=== PATIENT | female | born 2005 | race Caucasian/White ===

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

== ENCOUNTER 2024-01-22 18:30 | Emergency (ER) | payer BC, MEDICAID ==
[~2024-01-22] VITALS: Ht 162.5 cm; Wt 111.1 kg
[~2024-01-22 18:30] MED LIST changes: +ONDANSETRON4 MG SL
[2024-01-22 19:08] LABS: BASO # 0.1 10*3/uL (0.0-0.1); BASO % 0.4 % (0.0-1.0); EOS # 0.1 10*3/uL (0.0-0.4); EOS % 0.8 % (1.0-4.0); LYMPH # 3.1 10*3/uL (1.3-4.4); LYMPH % 24.3 % (27.0-41.0); MEAN CELL VOLUME 84.5 fl (81.0-99.0); MEAN CORPUSCULAR HGB 28.8 pg (27.0-31.0); MEAN CORPUSCULAR HGB CONC 34.1 g/dl (33.0-37.0); MEAN PLATELET VOLUME 9.4 fl (9.6-12.3); MONO # 0.5 10*3/uL (0.1-1.0); MONO % 3.8 % (3.0-9.0); NEUT # 8.9 10*3/uL (2.3-7.9); NEUT % 70.5 % (47.0-73.0); PLATELET COUNT AUTOMATED 276 10*3/uL (130-400); RED BLOOD COUNT 4.38 10*6/uL (4.10-5.10); RED CELL DISTRI WIDTH 12.8 % (0-14.5); WHITE BLOOD COUNT 12.6 10*3/uL (4.8-10.8)
[2024-01-22 19:30] LABS: BILIRUBIN Negative (Negative); BLOOD Negative (Negative); CLARITY Cloudy (Clear); COLOR Dark Yellow (Yellow); GLUCOSE Negative (Negative); KETONE Negative (Negative); LEUKO ESTERASE Negative (Negative); NITRITE Negative (Negative); PH 5.5 (4.5-8.0); SPECIFIC GRAVITY >= 1.030 (1.001-1.030)
[2024-01-22 19:36] LABS: ALKALINE PHOSPHATASE 90 U/L (46-116); CHLORIDE 105 mmol/L (98-107); POTASSIUM 3.5 mmol/L (3.4-5.1); SGPT/ALT 60 U/L (5-49); TOTAL PROTEIN 6.5 gm/dL (6.0-8.0)
[2024-01-22 19:44] LABS: BACTERIA 3+; MUCOUS 1+
[2024-01-22 19:47] LABS: BUN < 5 mg/dl (9-23)
[2024-01-22] MEDS ORDERED: CEPHALEXIN500 M1 PO (19:55)
[2024-01-22] MEDS ORDERED: Water, Sterile 10 ML VIAL ONE (20:21)
== END 2024-01-22 20:01 | disposition home or self-care (01) ==
LOC: ED 18:30
PROVIDERS: Nurse Practitioner Family
DX: O26.891 Other specified pregnancy related conditions, first trimester (principal); Z3A.13 13 weeks gestation of pregnancy; R82.71 Bacteriuria; Z88.8 Allergy status to other drugs, medicaments and biological substances

== ENCOUNTER 2024-01-29 08:49 | Emergency (ER) | payer BC, OTHER ==
[~2024-01-29] VITALS: Ht 162.5 cm; Wt 111.1 kg
[~2024-01-29 08:49] MED LIST changes: +CEPHALEXIN500 M1 PO
[2024-01-29] MEDS ORDERED: TRAZODONE150 MG PO (08:59)
[2024-01-29 09:52] LABS: BASO # 0.1 10*3/uL (0.0-0.1); BASO % 0.5 % (0.0-1.0); EOS # 0.1 10*3/uL (0.0-0.4); EOS % 0.9 % (1.0-4.0); HEMATOCRIT 40.1 % (37.0-47.0); LYMPH # 1.7 10*3/uL (1.3-4.4); LYMPH % 18.7 % (27.0-41.0); MEAN CELL VOLUME 85.1 fl (81.0-99.0); MEAN CORPUSCULAR HGB 28.7 pg (27.0-31.0); MEAN CORPUSCULAR HGB CONC 33.7 g/dl (33.0-37.0); MEAN PLATELET VOLUME 9.4 fl (9.6-12.3); MONO # 0.3 10*3/uL (0.1-1.0); MONO % 2.9 % (3.0-9.0); NEUT # 7.1 10*3/uL (2.3-7.9); NEUT % 76.8 % (47.0-73.0); PLATELET COUNT AUTOMATED 265 10*3/uL (130-400); RED BLOOD COUNT 4.71 10*6/uL (4.10-5.10); RED CELL DISTRI WIDTH 13.2 % (0-14.5); WHITE BLOOD COUNT 9.2 10*3/uL (4.8-10.8)
[2024-01-29 10:27] LABS: ALKALINE PHOSPHATASE 88 U/L (46-116); CHLORIDE 107 mmol/L (98-107); POTASSIUM 3.9 mmol/L (3.4-5.1); SGPT/ALT 29 U/L (5-49); TOTAL PROTEIN 6.4 gm/dL (6.0-8.0)
[2024-01-29 10:28] LABS: BUN < 5 mg/dl (9-23)
[2024-01-29 11:05] LABS: BILIRUBIN Negative (Negative); BLOOD Negative (Negative); CLARITY Cloudy (Clear); COLOR Yellow (Yellow); GLUCOSE Negative (Negative); KETONE Negative (Negative); LEUKO ESTERASE 3+ (Negative); NITRITE Negative (Negative); UROBILINOGEN 0.2 E.U./dl (0.0-1.0)
[2024-01-29 11:14] LABS: BACTERIA 4+; EPITHELIAL CELLS 21-30; WBC 16-20 wbc/hpf (0-5)
[2024-01-29] MEDS ORDERED: MACROBID100 M1 PO (12:20)
== END 2024-01-29 12:56 | disposition home or self-care (01) ==
LOC: ED 08:49
PROVIDERS: Emergency Medicine
DX: O23.41 Unspecified infection of urinary tract in pregnancy, first trimester (principal); N39.0 Urinary tract infection, site not specified; Z3A.13 13 weeks gestation of pregnancy; M54.50 Low back pain, unspecified; Z88.8 Allergy status to other drugs, medicaments and biological substances

== ENCOUNTER 2024-02-04 20:00 | Emergency (ER) | payer BC, OTHER ==
[~2024-02-04 20:00] MED LIST changes: +MACROBID100 M1 PO; +TRAZODONE150 MG PO
[2024-02-04] MEDS ORDERED: PROZAC20 MG PO (20:09)
[2024-02-04] MEDS ORDERED: LIDOCAINE 1 EA PATCH T ONE (20:25)
[2024-02-04] MEDS ORDERED: ASPERCREME LID1 EACH T (20:26)
== END 2024-02-04 21:39 | disposition home or self-care (01) ==
LOC: ED 20:00
DX: O99.891 Other specified diseases and conditions complicating pregnancy (principal); M54.16 Radiculopathy, lumbar region; Z79.899 Other long term (current) drug therapy; Z3A.10 10 weeks gestation of pregnancy